=== PATIENT | female | born 1955 | race Two or more races ===

== ENCOUNTER 2017-03-23 00:47 | Inpatient (IN) | payer SELFPAY ==
[~2017-03-23] VITALS: Ht 152.4 cm; Wt 63.4 kg
[2017-03-23] MEDS ORDERED: ASPIRIN 81 MG TABLET CHEW ONE (01:20)
[2017-03-23] MEDS ORDERED: ASPIRIN 81 MG TABLET CHEW PO ONE (01:30)
[2017-03-23] MEDS ORDERED: SODIUM CHLORIDE FLUSH 10ML SYR IVF ONE (01:30)
[2017-03-23 01:44] LABS: ASPARTATE AMINO TRANSFERASE 32 U/L (15-37); BLOOD UREA NITROGEN 15 mg/dL (7-18)
[2017-03-23] MEDS ORDERED: POLYETHYLENE GLYCOL 17 GM PACKET PO PRN (03:00)
[2017-03-23] MEDS ORDERED: morphine SULFATE 10 MG/ML, 1ML IVPush PRN (03:00)
[2017-03-23] MEDS ORDERED: HYDROcodone/APAP 5/325 TABLET PO PRN (03:00)
[2017-03-23] MEDS ORDERED: ENOXAPARIN 40 MG/0.4 ML SQ SCH (03:00)
[2017-03-23] MEDS ORDERED: ENALAPRILAT 1.25 MG/ML, 2ML IV PRN (03:00)
[2017-03-23] MEDS ORDERED: hydrALAzine 20 MG/ML, 1ML IV PRN (03:00)
[2017-03-23] MEDS ORDERED: ONDANSETRON 2MG/ML, 2ML IVPush PRN (03:00)
[2017-03-23] MEDS ORDERED: ACETAMINOPHEN 325 MG TABLET PO PRN (03:00)
[2017-03-23] MEDS ORDERED: LABETALOL 5MG/ML, 20ML IVPush PRN (03:00)
[2017-03-23] MEDS ORDERED: DOCUSATE 100 MG CAPSULE PO PRN (03:00)
[2017-03-23 04:07] VITALS: BP 144/79
[2017-03-23 04:09] VITALS: BP 144/79
[2017-03-23 06:46] LABS: IS PT STATUS REG ER OR PRE ER? NO
[2017-03-23 06:53] VITALS: BP 137/81
[2017-03-23] MEDS ORDERED: REGADENOSON 0.4 MG/5 ML SYRINGE ONE (08:18)
[2017-03-23] MEDS ORDERED: SODIUM CHLORIDE FLUSH 10ML SYR IVF SCH (09:00)
[2017-03-23] MEDS ORDERED: SENNA/DOCUSATE TABLET PO SCH (09:00)
[2017-03-23 13:37] VITALS: BP 125/84
== END 2017-03-23 18:49 | disposition home or self-care (01) | DRG 313 ==
LOC: ED 02:29 → SUATTDRO 02:49 → EDIP 02:54 → 5SO 03:42
PROVIDERS: ADMIT Family Medicine; ATTEND Family Medicine
DX: R07.89 Other chest pain (principal); R42 Dizziness and giddiness; R51 Headache
CPT/HCPCS: 36415; 70450; 71010; 78452; 80053; 80061; 84439; 84443; 84484; 85025; 85610; 85730; 93005; 93017; 99285; J1650; J2785; A9502; C9898